=== PATIENT | female | born 1980 | race Caucasian/White ===

== ENCOUNTER → 2017-04-22 | Outpatient (CLI) | payer OTHER ==
[~2017-04-22] MED LIST: PROTONIX40 MG PO; TYLENOL DPS325 MG PO; ZOFRAN4 MG PO
== END | disposition home or self-care (01) ==
LOC: RAD.S 08:38
DX: R92.8 Other abnormal and inconclusive findings on diagnostic imaging of breast (principal); N63 Unspecified lump in breast